=== PATIENT | female | born 1965 | race African-American/Black ===

== ENCOUNTER 2016-05-17 12:55 | Emergency (ER) | payer OTHER ==
--- NOTE | 2016-05-17 16:02 | ERRECORD ---
[facility] EMERGENCY RECORD PAST MEDICAL HISTORY (13:10 AWAT) MEDICAL HISTORY: No past medical history,. FEMALE SURGICAL HISTORY: HERNIA REPAIR A CHILD, Surgical history of tubal ligation. SOCIAL HISTORY: Patient drinks socially, Patient denies drug use, Patient has no smoking history. KNOWN ALLERGIES No Known Drug Allergies CURRENT MEDICATIONS (13:09 AWAT) None VITAL SIGNS (13:06 AWAT) VITAL SIGNS: BP: 123/74, Pulse: 74, Resp: 18, Temp: 98.0 (Oral), Pain: 5 (Intermittent), O2 sat: 100 on Room Air, Time: 05/17/2016 13:06. PROBLEM LIST No recorded problems DIAGNOSIS (15:37 AWAT) FINAL: PRIMARY: eloped. PRESCRIPTION No recorded prescriptions DISPOSITION PATIENT: Disposition Type: Eloped, Disposition: Left Without Being Seen. (15:35 AWAT) Patient left the department. (15:37 AWAT) Garcia: AWAT=ANAHI Kimball, Rambo &a-1R&a+25V*p+0X*[id number]*c202B*c15G*c2P*p-0X&a-25V&a+1R Name: Marcial Gonzalez : 1965 F50 MedRec: [id number] AcctNum: [id number] Prepared: TueMay 17, 2016 15:44 by Interface Page 1 of 1 pMD MTDD
--- NOTE | 2016-05-17 16:10 | PICIS ---
[facility] EMERGENCY RECORD TRIAGE (TueMay 17, 2016 13:08 AWAT) PATIENT: NAME: Marcial Gonzalez, AGE: 50, GENDER: female, : Tue1965, TIME OF GREET: TueMay 17, 2016 12:56, PREFERRED LANGUAGE: Kazakh, ETHNICITY: Not or , FALL RISK: NO, ECODE BILLING MAP: [facility], SSN: [id number], Zip Code: [facility], [place] WEIGHT: [phone], PHONE: , , , PERSON ID: [id number], PCP: TRAVON. (TueMay 17, 2016 13:08 AWAT) TRIAGE NOTES: ON MENSTRUAL CYCLE, VERY BAD CRAMPING. SHE SAYS SHE STAYED [facility] ALL NIGHT. HAS A DR APPT TUESDAY FOR THIS WITH [facility]. pt triaged, then placed back into the waiting room to await an open bed. (TueMay 17, 2016 13:08 AWAT) COMPLAINT: SEVERE CRAMPS. (TueMay 17, 2016 13:08 AWAT) ADMISSION: URGENCY: 5 Fast Track, ADMISSION SOURCE: Home, TRANSPORT: Walk-in, BED: WAIT. (TueMay 17, 2016 13:08 AWAT) IMMUNIZATIONS: Flu vaccine not up to date, Tetanus immunization up to date, Date of immunization: 2006. (13:10 AWAT) SIRS SCORING: Heart Rate 55-109 (0), Temp range 96.8-101.1 (0), respiratory rate 12-24 (0), Mental Status altered: no (0). (13:10 AWAT) LMP: Last menstrual period: 05/17/2016. (13:10 AWAT) PROVIDERS: TRIAGE NURSE: Rambo Kimball RN. (TueMay 17, 2016 13:08 AWAT) VITAL SIGNS: BP 123/74, Pulse 74, Resp 18, Temp 98.0, (Oral), Pain 5, (Intermittent), O2 Sat 100, on Room Air, Time 05/17/2016 13:06. (13:06 AWAT) PREVIOUS VISIT ALLERGIES: No Known Drug Allergies. (TueMay 17, 2016 13:08 AWAT) No Known Drug Allergies. (13:10 AWAT) KNOWN ALLERGIES No Known Drug Allergies CURRENT MEDICATIONS (13:09 AWAT) None VITAL SIGNS (13:06 AWAT) VITAL SIGNS: BP: 123/74, Pulse: 74, Resp: 18, Temp: 98.0 (Oral), Pain: 5 (Intermittent), O2 sat: 100 on Room Air, Time: 05/17/2016 13:06. NURSING PROCEDURE: DISCHARGE NOTE (15:00 AWAT) DISCHARGE: Patient left without being seen, ambulating without assistance, driving self, unaccompanied. BELONGINGS: Belongings remain with patient, Valuables remain with patient. SAFETY: Physician notified of above findings. VITAL SIGNS: Time: 1500. PAST MEDICAL HISTORY (13:10 AWAT) &a-1R&a+25V*p+0X*[id number]*c202B*c15G*c2P*p-0X&a-25V&a+1R Name: Marcial Gonzalez : 1965 F50 MedRec: [id number] AcctNum: [id number] Prepared: TueMay 17, 2016 15:50 by Interface Page 1 of 2 pMD [facility] EMERGENCY RECORD MEDICAL HISTORY: No past medical history,. FEMALE SURGICAL HISTORY: HERNIA REPAIR A CHILD, Surgical history of tubal ligation. SOCIAL HISTORY: Patient drinks socially, Patient denies drug use, Patient has no smoking history. EVENTS TRANSFER: Triage to Emergency Waiting. (13:08 AWAT) Removed from Emergency Waiting. (15:37 AWAT) PROBLEM LIST No recorded problems DIAGNOSIS (15:37 AWAT) FINAL: PRIMARY: eloped. DISPOSITION PATIENT: Disposition Type: Eloped, Disposition: Left Without Being Seen. (15:35 AWAT) Patient left the department. (15:37 AWAT) PRESCRIPTION No recorded prescriptions IMAGING (15:34 AWAT) AMA/LWBS: Image captured from scanner. Garcia: AWAT=ANAHI Kimball, Rambo &a-1R&a+25V*p+0X*[id number]*c202B*c15G*c2P*p-0X&a-25V&a+1R Name: Marcial Gonzalez : 1965 F50 MedRec: [id number] AcctNum: [id number] Prepared: TueMay 17, 2016 15:50 by Interface Page 2 of 2 pMD MTDD
== END 2016-05-17 15:00 | disposition left against medical advice (07) ==
LOC: MADERS 12:55
DX: Z53.21 Procedure and treatment not carried out due to patient leaving prior to being seen by health care provider (principal)

== ENCOUNTER 2016-06-22 17:03 | Emergency (ER) | payer OTHER ==
[2016-06-22] MEDS ORDERED: Ondansetron ODT 4 MG TAB ONE (17:26)
== END 2016-06-22 17:29 | disposition home or self-care (01) ==
LOC: MADERS 17:03
DX: A08.4 Viral intestinal infection, unspecified (principal)
CPT/HCPCS: 99283; Q0162

== ENCOUNTER 2016-12-28 15:19 | Emergency (ER) | payer OTHER, SELFPAY ==
[2016-12-28] MEDS ORDERED: Ondansetron ODT 4 MG TAB ONE (16:25)
[2016-12-28 16:32] LABS: Bilirubin Negative (Negative); Blood, Urine Negative (Negative); Glucose, Urine (Dipstick) Negative (Negative); Leukocyte Negative (Negative); Nitrite Negative (Negative); Protein, Urine (Dipstick) Negative (Neg-Trace); pH, Urine 7.5 (5.0-9.0)
[2016-12-28 16:33] LABS: Bacteria/HPF 2+ HPF (None Seen); Clarity Hazy (Clear); RBC/HPF 0-3 HPF (0-3); WBC/HPF 0-3 HPF (0-3)
== END 2016-12-28 16:45 | disposition home or self-care (01) ==
LOC: MADERS 15:19
DX: K52.9 Noninfective gastroenteritis and colitis, unspecified (principal)
CPT/HCPCS: 81001; 99284; Q0162

== ENCOUNTER 2017-02-20 13:10 | Emergency (ER) | payer BC, SELFPAY ==
[2017-02-20 14:05] LABS: Bilirubin Negative (Negative); Blood, Urine Small (Negative); Clarity Slightly Cloudy (Clear); Glucose, Urine (Dipstick) Negative (Negative); Leukocyte Negative (Negative); Nitrite Negative (Negative); Protein, Urine (Dipstick) Trace mg/dL (Neg-Trace); RBC/HPF 0-3 HPF (0-3); Specific Gravity, Urine 1.015 (1.005-1.030); pH, Urine 7.5 (5.0-9.0)
[2017-02-20 14:06] LABS: Bacteria/HPF 1+ HPF (None Seen); WBC/HPF 0-3 HPF (0-3)
[2017-02-20] MEDS ORDERED: Sulfameth/Trimethoprim DS 800-160mg TAB ONE (14:41)
[2017-02-20] MEDS ORDERED: Phenazopyridine HCl 97.5 MG TABLET ONE (14:41)
== END 2017-02-20 14:50 | disposition home or self-care (01) ==
LOC: MADERS 13:10
DX: R82.71 Bacteriuria (principal)
CPT/HCPCS: 81001; 87086; 99284

== ENCOUNTER 2017-04-23 22:05 | Emergency (ER) | payer BC ==
[2017-04-23] MEDS ORDERED: Ondansetron ODT 4 MG TAB ONE (22:26)
[2017-04-23] MEDS ORDERED: Ibuprofen 800 MG TAB ONE (22:26)
== END 2017-04-23 22:40 | disposition home or self-care (01) ==
LOC: MADERS 22:05
DX: A08.4 Viral intestinal infection, unspecified (principal)
CPT/HCPCS: 99283; Q0162

== ENCOUNTER 2018-03-05 07:36 | Emergency (ER) | payer BC | END 2018-03-05 08:00 | disposition home or self-care (01) | LOC: MADERS 07:36 | DX: K52.9 Noninfective gastroenteritis and colitis, unspecified (principal) | CPT/HCPCS: 99281 ==